=== PATIENT | female | born 1990 | race Caucasian/White ===

== ENCOUNTER → 2017-05-21 | Outpatient (CLI) | payer OTHER ==
[~2017-05-21] VITALS: Ht 152.4 cm; Wt 74.4 kg
[~2017-05-21] MED LIST: INTESTINEX680 MG PO; OSEL75CA PO; VOLTAREM 50MG PO; ZANTAC150 MG PO
== END | disposition home or self-care (01) ==
LOC: PPHC 09:23
DX: J98.8 Other specified respiratory disorders (principal); R05 Cough

== ENCOUNTER → 2017-05-25 06:36 | Outpatient (CLI) | payer OTHER | END | disposition home or self-care (01) | LOC: LAB 06:36 | DX: Z00.00 Encounter for general adult medical examination without abnormal findings (principal) ==

== ENCOUNTER → 2018-10-15 07:31 | Outpatient (CLI) | payer OTHER | END | disposition home or self-care (01) | LOC: LAB 07:31 | DX: E55.9 Vitamin D deficiency, unspecified (principal); E11.9 Type 2 diabetes mellitus without complications; E03.0 Congenital hypothyroidism with diffuse goiter; E78.00 Pure hypercholesterolemia, unspecified; N39.0 Urinary tract infection, site not specified; R63.4 Abnormal weight loss; A60.04 Herpesviral vulvovaginitis; R21 Rash and other nonspecific skin eruption; R50.9 Fever, unspecified ==

== ENCOUNTER 2021-07-04 07:15 | Emergency (ER) | payer OTHER ==
[~2021-07-04] VITALS: Ht 154.9 cm; Wt 63.5 kg
== END 2021-07-04 12:29 | disposition home or self-care (01) ==
LOC: ER 07:15
DX: R10.13 Epigastric pain (principal)